=== PATIENT | male | born 1995 | race Caucasian/White ===

== ENCOUNTER 2019-12-09 01:18 | Emergency (ER) | payer OTHER ==
[2019-12-09] MEDS ORDERED: diPHENhydraMINE PO* 25 MG PO ONE ×2 (01:46→02:46)
--- NOTE | 2019-12-09 01:50 | ED ---
Abdominal Pain/Male - HPI Summary HPI Summary: 24 year old male presents to the ED with a chief complaint of epigastric pain starting 15 minutes ago. Patient reports having sexual intercourse with his girlfriend an hour ago with a latex condom. He reports 8/10 abdominal pain, dry heaving, tremors, gross erythema, and rash on his hands bilaterally. Patient denies rash on his groin, chest pain, diarrhea, and SOB. Patient's last bowel movement was 15 minutes ago, although it was small. He last ate at 1530. No new medications. No new soaps or detergents used. No recreational drug use. He has not drank any alcohol for 3 weeks. PMHx of stomach aches, but never this severe. - History of Current Complaint Chief Complaint: EDAbdPain Stated Complaint: ABD PAIN/HANDS ON FIRE PER PT Time Seen by Provider: 12/09/19 01:27 Hx Obtained From: Patient Onset/Duration: Sudden Onset, Lasting Minutes Timing: Constant, Lasting Minutes Severity Initially: Severe Severity Currently: Moderate Pain Intensity: 8 Pain Scale Used: 0-10 Numeric Location: Epigastric Radiates: No Character: Cramping Aggravating Factor(s): Other: - unknown, but he had just had sexual intercourse Associated Signs And Symptoms: Positive: Vomiting - dry, Other - Erythema grossly and bilateral rash on hands.. Negative: Fever, Chest Pain, Diarrhea - Allergies/Home Medications Allergies/Adverse Reactions: Allergies Allergy/AdvReac Type Severity Reaction Status Date / Time No Known Allergies Allergy Verified 12/09/19 01:24 Home Medications: Home Medications Pantoprazole TAB * [Protonix TAB*] 1 tab PO ONCE 12/09/19 [History Confirmed ] PMH/Surg Hx/FS Hx/Imm Hx Sensory History: Denies: Hx Deafness EENT History: Denies: Hx Deafness Infectious Disease History: No Infectious Disease History: Denies: Traveled Outside the [place] in Last 30 Days - Family History Known Family History: Positive: None - Social History Alcohol Use: Occasionally Substance Use Type: Reports: None Hx Tobacco Use: No Review of Systems Negative: Fever Negative: Chest Pain Negative: Shortness Of Breath Positive: Abdominal Pain, Vomiting - dry. Negative: Diarrhea Positive: Rash - On hands bilaterally, not on groin, Other - erythema grossly All Other Systems Reviewed And Are Negative: Yes Physical Exam - Summary Physical Exam Summary: Constitutional: Well-developed, Well-nourished, Alert. (-) Distressed Skin: Warm, Dry. Erythema noted on hands, feet, neck, and face. Not pruritic. No angioedema. HENT: Normocephalic; Atraumatic Eyes: Conjunctiva normal Neck: Musculoskeletal ROM normal neck. (-) JVD, (-) Stridor, (-) Tracheal deviation Cardio: Rhythm regular, rate normal, Heart sounds normal; Intact distal pulses; The pedal pulses are 2+ and symmetric. Radial pulses are 2+ and symmetric. (-) Murmur Pulmonary/Chest wall: Effort normal. (-) Respiratory distress, (-) Wheezes, (-) Rales Abd: Soft, (-) Distension, (-) Guarding, (-) Rebound. Mild tenderness on epigastric region and LUQ. Musculoskeletal: (-) Edema Lymph: (-) Cervical adenopathy Neuro: Alert, Oriented x3 Psych: Mood and affect Normal Triage Information Reviewed: Yes Vital Signs On Initial Exam: Initial Vitals Temp Pulse Resp BP Pulse Ox 97.6 F 85 24 149/82 98 12/09/19 01:20 12/09/19 01:20 12/09/19 01:20 12/09/19 01:20 12/09/19 01:20 Vital Signs Reviewed: Yes Procedures - Sedation Patient Received Moderate/Deep Sedation with Procedure: No Diagnostics - Vital Signs Vital Signs Temp Pulse Resp BP Pulse Ox 12/09/19 01:20 97.6 F 85 24 149/82 98 - Laboratory Lab Statement: Any lab studies that have been ordered have been reviewed, and results considered in the medical decision making process. Abdominal Pain Male Course/Dx - Course Course Of Treatment: 24 year old male presents to the ED with a chief complaint of epigastric pain starting 15 minutes ago. Patient reports having sexual intercourse with his girlfriend an hour ago with a latex condom. He reports 8/ 10 abdominal pain, dry heaving, tremors, gross erythema, and rash on his hands bilaterally. Patient denies rash on his groin, chest pain, diarrhea, and SOB. Patient's last bowel movement was 15 minutes ago, although it was small. He last ate at 1530. No new medications. No new soaps or detergents used. No recreational drug use. He has not drank any alcohol for 3 weeks. PMHx of stomach aches, but never this severe. Physical exam reveals mild tenderness to his epigastric region and LUQ. Erythema noted on his hands, feet, neck, and face. Skin not pruritic. No angioedema. During ED course diphenhydramine was given for patient's allergic reaction. Patient's condition has improved. Diagnosis is allergic reaction and abdominal pain. Patient will be discharged home with PCP follow up in 2-3 days. Patient understands and agrees with this plan. - Diagnoses Provider Diagnoses: Abdominal pain, Allergic reaction Discharge ED - Sign-Out/Discharge Documenting (check all that apply): Patient Departure - discharge home - Discharge Plan Condition: Stable Disposition: HOME Patient Education Materials: Acute Abdominal Pain (ED), General Allergic Reaction (ED) Additional Instructions: Follow up with [facility] in 2-3 days. Return to the ED if you experience new or worsened symptoms. - Attestation Statements Document Initiated by Scribe: Yes Documenting Scribe: Brain Knowles Provider For Whom Stevee is Documenting (Include Credential): Juvencio Young DO Scribe Attestation: Brain Merchant, scribed for Juvencio Young DO on 12/09/19 at 0259. Status of Scribe Document: Ready
[2019-12-09 02:50] VITALS: BP 129/67
== END 2019-12-09 02:49 | disposition home or self-care (01) ==
LOC: ED 01:18
DX: R10.13 Epigastric pain (principal); R10.12 Left upper quadrant pain; T78.40XA Allergy, unspecified, initial encounter; L53.9 Erythematous condition, unspecified; X58.XXXA Exposure to other specified factors, initial encounter
CPT/HCPCS: 99282; A9270-GY